=== PATIENT | male | born 1945 | race Hispanic/Latino ===

== ENCOUNTER 2019-05-05 06:39 | Day surgery (SDC) | payer OTHER ==
[~2019-05-05] VITALS: Ht 157.5 cm; Wt 77.1 kg
[2019-05-05] VITALS (7 sets, daily range): BP systolic 91–149; BP diastolic 56–81
[~2019-05-05 06:39] MED LIST: AMLO5TAB9 PO; ASPI-449 PO; METF-444 PO; METO25TA6 PO; ROSU40TA21 PO
[2019-05-05] MEDS ORDERED: SODIUM CHLORIDE 0.9% 1000ML 1,000 ML IV ONE (07:15)
[2019-05-05 07:42] LABS: BASOPHILS % (AUTO) 0.7 % (0.0-5.0); EOSINOPHILS % (AUTO) 0.8 % (0.0-8.0); HEMATOCRIT 47.5 % (42-54); LYMPHOCYTES % (AUTO) 31.5 % (21.0-51.0); MEAN CORPUSCULAR HEMOGLOBIN 28.7 pg (27.0-33.0); MEAN CORPUSCULAR HGB CONC 33.2 g/dL (32.0-36.0); MEAN CORPUSCULAR VOLUME 86.5 fL (79-99); MONOCYTES % (AUTO) 9.1 % (3.0-13.0); NEUTROPHILS % (AUTO) 57.9 % (40.0-77.0); NUCLEATED RED BLOOD CELLS 0.1 % (0.0-0.19); PLATELET COUNT (AUTO) 237 K/uL (130-400); RED CELL DISTRIBUTION WIDTH 13.9 % (11.0-15.5); WHITE BLOOD COUNT (AUTO) 9.2 K/uL (4.8-10.8)
[2019-05-05] MEDS ORDERED: PROPOFOL 10 MG/ML 20ML VIAL IV ONE (08:50)
[2019-05-05] MEDS ORDERED: LIDOCAINE HCL 1% 20 ML VIAL ONE (08:50)
== END 2019-05-05 09:55 | disposition home or self-care (01) ==
LOC: DAH 06:39
PROVIDERS: ATTEND Surgery
DX: Z12.11 Encounter for screening for malignant neoplasm of colon (principal); K57.30 Diverticulosis of large intestine without perforation or abscess without bleeding; N40.0 Benign prostatic hyperplasia without lower urinary tract symptoms; E78.5 Hyperlipidemia, unspecified; I12.9 Hypertensive chronic kidney disease with stage 1 through stage 4 chronic kidney disease, or unspecified chronic kidney disease; E11.22 Type 2 diabetes mellitus with diabetic chronic kidney disease; N18.9 Chronic kidney disease, unspecified; K21.9 Gastro-esophageal reflux disease without esophagitis; F15.90 Other stimulant use, unspecified, uncomplicated; Z79.84 Long term (current) use of oral hypoglycemic drugs; Z79.899 Other long term (current) drug therapy; Z90.49 Acquired absence of other specified parts of digestive tract; Z79.82 Long term (current) use of aspirin; Z82.49 Family history of ischemic heart disease and other diseases of the circulatory system; Z83.3 Family history of diabetes mellitus; Z82.3 Family history of stroke
CPT/HCPCS: 36415; 80048; 82948 ×2; 85025; 93005; A4606; G0121; J2704; J7030; 45378

== ENCOUNTER 2022-10-01 09:52 | Emergency (ER) | payer MEDICARE, OTHER ==
[~2022-10-01] VITALS: Ht 154.9 cm; Wt 72.6 kg
[~2022-10-01 09:52] MED LIST changes: +AMLO-257 PO; -AMLO5TAB9 PO
[2022-10-01 10:17] LABS: BASOPHILS % (AUTO) 0.2 % (0.0-5.0); EOSINOPHILS % (AUTO) 0.4 % (0.0-8.0); HEMATOCRIT 41.7 % (42-54); LYMPHOCYTES % (AUTO) 24.7 % (21.0-51.0); MEAN CORPUSCULAR HEMOGLOBIN 29.1 pg (27.0-33.0); MEAN CORPUSCULAR HGB CONC 34.5 g/dL (32.0-36.0); MEAN CORPUSCULAR VOLUME 84.4 fL (79-99); MONOCYTES % (AUTO) 7.8 % (3.0-13.0); NEUTROPHILS % (AUTO) 66.6 % (40.0-77.0); PLATELET COUNT (AUTO) 205 K/uL (130-400); RED BLOOD CELL COUNT(AUTO) 4.94 MIL/uL (4.50-6.20); RED CELL DISTRIBUTION WIDTH 13.4 % (11.0-15.5); WHITE BLOOD COUNT (AUTO) 8.9 K/uL (4.8-10.8)
[2022-10-01 10:27] LABS: POTASSIUM 4.2 mmol/L (3.5-5.1)
[2022-10-01 10:31] LABS: ALBUMIN 3.9 g/dL (3.5-5.0); TOTAL PROTEIN, SERUM 8.3 g/dL (6.0-8.3)
[2022-10-01] MEDS ORDERED: ONDANSETRON ODT 4MG TAB SL ONE (12:00)
[2022-10-01] MEDS ORDERED: 0.9% NACL 500ML IV.SOLN 500 ML IV ONE (12:00)
[2022-10-01] MEDS ORDERED: MECLIZINE HCL 25 MG TABLET ONE (12:02)
[2022-10-01 12:25] LABS: APPEARANCE,URINE CLEAR (CLEAR); BILIRUBIN,URINE NEGATIVE (NEGATIVE); COLOR,URINE LIGHT-YELLOW (YELLOW); GLUCOSE, URINE (UA) NEGATIVE (NEGATIVE); KETONES,URINE NEGATIVE (NEGATIVE); LEUKOCYTE ESTERASE ,URINE NEGATIVE Leu/uL (NEGATIVE); NITRATE,URINE NEGATIVE (NEGATIVE); OCCULT BLOOD,URINE NEGATIVE (NEGATIVE); PROTEIN,URINE NEGATIVE (NEGATIVE); UROBILINOGEN,URINE 0.2 mg/dL (0.2-1.0)
[2022-10-01] MEDS ORDERED: MECLIZINE HCL 25 MG TABLET PO ONE (13:00)
[2022-10-01 13:38] VITALS: BP 130/71
[2022-10-01] MEDS ORDERED: MECL-160 PO (14:13)
== END 2022-10-01 14:37 | disposition home or self-care (01) ==
LOC: EDH 09:52
DX: H81.10 Benign paroxysmal vertigo, unspecified ear (principal); I10 Essential (primary) hypertension; E03.9 Hypothyroidism, unspecified; Z90.49 Acquired absence of other specified parts of digestive tract
CPT/HCPCS: 36415; 70450; 80053; 81003; 84484; 85025; 93005

== ENCOUNTER 2023-09-16 11:26 | Emergency (ER) | payer MEDICARE ==
[~2023-09-16] VITALS: Ht 165.1 cm; Wt 72.1 kg
[~2023-09-16 11:26] MED LIST changes: +MECL-302 PO
[2023-09-16 13:36] LABS: POTASSIUM 3.3 mmol/L (3.5-5.1)
[2023-09-16 15:25] LABS: APPEARANCE,URINE CLEAR (CLEAR); BILIRUBIN,URINE NEGATIVE (NEGATIVE); COLOR,URINE COLORLESS (YELLOW); GLUCOSE, URINE (UA) NEGATIVE (NEGATIVE); KETONES,URINE NEGATIVE (NEGATIVE); LEUKOCYTE ESTERASE ,URINE NEGATIVE Leu/uL (NEGATIVE); NITRATE,URINE NEGATIVE (NEGATIVE); OCCULT BLOOD,URINE NEGATIVE (NEGATIVE); PH,URINE 6.5 (5.0-8.0); PROTEIN,URINE 20 mg/dL (NEGATIVE); UROBILINOGEN,URINE 0.2 mg/dL (0.2-1.0)
[2023-09-16 15:27] LABS: ADD UA MICROSCOPIC YES
[2023-09-16] MEDS ORDERED: MECLIZINE HCL 25 MG TABLET PO ONE (15:30)
[2023-09-16] MEDS ORDERED: METOCLOPRAMIDE 10 MG/2 ML VIAL IVP ONE (15:30)
[2023-09-16 15:58] LABS: BASOPHILS # (AUTO) 0.02 K/uL (0.00-0.20); BASOPHILS % (AUTO) 0.2 % (0.0-5.0); EOSINOPHILS # (AUTO) 0.02 K/uL (0.00-0.70); EOSINOPHILS % (AUTO) 0.2 % (0.0-8.0); IMMATURE GRANULOCYTE ABSOLUTE 0.04 K/uL (0-1); LYMPHOCYTES # (AUTO) 2.3 K/uL (1.0-4.8); LYMPHOCYTES % (AUTO) 21.3 % (21.0-51.0); MEAN CORPUSCULAR HEMOGLOBIN 29.1 pg (27.0-33.0); MEAN CORPUSCULAR VOLUME 85.5 fL (79-99); MONOCYTES # (AUTO) 0.6 K/uL (0.1-1.0); MONOCYTES % (AUTO) 5.3 % (3.0-13.0); NEUTROPHILS # (AUTO) 7.9 K/uL (1.8-7.7); NEUTROPHILS % (AUTO) 72.6 % (40.0-77.0); PLATELET COUNT (AUTO) 217 K/uL (130-400); RED BLOOD CELL COUNT(AUTO) 4.68 MIL/uL (4.50-6.20); RED CELL DISTRIBUTION WIDTH 13.1 % (11.0-15.5); WHITE BLOOD COUNT (AUTO) 10.8 K/uL (4.8-10.8)
[2023-09-16 16:17] LABS: MAGNESIUM 2.4 mg/dL (1.80-2.40)
[2023-09-16] MEDS ORDERED: METO-296 PO (17:38)
[2023-09-16] MEDS ORDERED: MECL-302 PO (17:38)
[2023-09-16 17:56] VITALS: BP 130/72; PULSE 64; RESP 17; O2SAT 97
[2023-09-16] MEDS ORDERED: POTASSIUM BICARB/CIT AC 25 MEQ TABLET.EFF PO ONE (18:00)
== END 2023-09-16 18:05 | disposition home or self-care (01) ==
LOC: EDH 11:26
DX: E03.9 Hypothyroidism, unspecified (principal); I10 Essential (primary) hypertension; Z90.49 Acquired absence of other specified parts of digestive tract
CPT/HCPCS: 99285; 96374; 70450; 71045; 84443; 82550; 83735; 84484 ×2; 80048; 83690; 85025; 82948; 83605; 81001; 36415; 93005 ×2; J2765